=== PATIENT | female | born 1950 ===

== ENCOUNTER 2017-04-13 13:41 | Outpatient (CLI) | payer MEDICARE ==
--- NOTE | 2017-04-13 16:41 | Ultrasound Report ---
RIGHT BREAST ULTRASOUND: 04/13/17 13:41:00 CLINICAL: Palpable right breast mass. COMPARISON: 03/05/17 mammogram FINDINGS: Ultrasound of the right breast (including all four quadrants and the retroareolar area) was performed and demonstrated a solid heterogeneous irregular hypoechoic mass at 6 o'clock 9 cm from the nipple. It measures 3.4 x 2.7 x 3.5 cm and correlates with a palpable lump. Review of the recent mammogram reveals a posterior asymmetry in the right breast on the MLO view and it appears that the posterior mass was not included on the mammogram. No other mass of the right breast. Ultrasound of the right axilla demonstrated an abnormal lymph node with no central fat measuring 2.8 x 1.5 x 2.9 cm. IMPRESSION: A highly suspicious 3.5 cm right breast mass at 6 o'clock 9 cm from the nipple and a suspicious right axillary lymph node. BI-RADS 5 - - Highly Suggestive of Malignancy RECOMMENDATION: Ultrasound guided needle core biopsy of the right breast and needle core biopsy of the suspicious right axillary lymph node. I discussed the findings and the recommendation for needle core biopsy with the patient at the time of the examination. She does not have a primary care doctor and desires to return to [facility] for the biopsy.
== END 2017-04-13 13:42 | disposition home or self-care (01) ==
LOC: SPVWC 13:41
PROVIDERS: ATTEND Internal Medicine
DX: N63.10 Unspecified lump in the right breast, unspecified quadrant (principal)

== ENCOUNTER 2017-04-26 10:14 | Outpatient (CLI) | payer MEDICARE ==
--- NOTE | 2017-04-26 12:50 | Mammography Report ---
RIGHT DIGITAL DIAGNOSTIC MAMMOGRAM: 04/26/17 10:14:00 CLINICAL: For clip placement immediately status post ultrasound biopsy. COMPARISON:03/05/17 FINDINGS: A biopsy clip is now identified 6 o'clock at the posterior aspect of the breast. IMPRESSION: Concordant clip placement status post ultrasound biopsy. BI-RADS CATEGORY: 5 - - Highly Suggestive of Malignancy Pathology pending.
--- NOTE | 2017-04-26 13:11 | Ultrasound Report ---
ULTRASOUND GUIDED NEEDLE CORE BIOPSY WITH CLIP PLACEMENT RIGHT BREAST AND ULTRASOUND GUIDED NEEDLE CORE BIOPSY OF A RIGHT AXILLARY LYMPH NODE : 04/26/17 00:00:00 CLINICAL: Right breast mass and a suspicious enlarged right axillary lymph nodes. COMPARISON :04/13/17 FINDINGS: The procedure was explained to the patient and informed consent was obtained. Ultrasound demonstrated the previously described 3.5 cm mass at 6 o'clock in the 2.8 cm suspicious right axillary lymph node. The skin was prepped with Betadine and anesthetized with 1% lidocaine. Ultrasound needle core biopsy was performed through a small dermatotomy using ultrasound guidance, 2% lidocaine with epinephrine for deep anesthesia and a 14-gauge Achieve biopsy device. 4 cores were obtained and placed in formalin. A 14 gauge Mammostar barbell shape clip was deployed within the lesion. The skin of the axilla was prepped with Betadine and anesthetized with 1% lidocaine. Ultrasound guided needle core biopsy of the lymph node was performed through a small dermatotomy using 2% lidocaine with epinephrine for deep anesthesia and a 18-gauge Achieve biopsy device. 2 samples were obtained and placed in formalin. A clip was deployed within the lymph node. Hemostasis was obtained at both sites with minimal pressure and sterile dressings were applied. The patient tolerated the procedure well and there were no apparent complications. A two-view mammogram demonstrated cord at clip placement. She was discharged in good condition and was given instructions for wound care and followup. IMPRESSION: Uncomplicated ultrasound-guided needle core biopsy of a right breast mass and uncomplicated needle core biopsy of right axillary lymph node.
== END 2017-04-26 10:15 | disposition home or self-care (01) ==
LOC: SPVWC 10:14
PROVIDERS: ATTEND Surgery
DX: C50.911 Malignant neoplasm of unspecified site of right female breast (principal); C77.3 Secondary and unspecified malignant neoplasm of axilla and upper limb lymph nodes; Z17.0 Estrogen receptor positive status [ER+]
CPT/HCPCS: 38505; 88305; 88342; 88361

== ENCOUNTER 2017-05-11 13:46 | Outpatient (CLI) | payer MEDICARE ==
--- NOTE | 2017-05-12 12:43 | Magnetic Resonance Report ---
BILATERAL BREAST MRI WITHOUT AND WITH CONTRAST: 05/11/17 13:46:00 CLINICAL: Newly diagnosed right breast cancer. 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 COMPARISON:03/05/17 and 04/26/17 mammograms.. TECHNIQUE: Axial 1.0-mm T1 without, axial high resolution 2.0-mm T2 and axial 1.0-mm dynamic Vibrant high-resolution postcontrast T1 fat saturation sequences on a 1.5 Eileen magnet. The examination was performed with an 8 channel dedicated [employer] breast coil. Post processing with CAD and subtraction was performed on an [email or web address] workstation. 14.0 cc of Multihance was injected without incident via a right antecubital vein 22-gauge INT for the contrast portion of the exam. Consent was obtained prior to the administration of the contrast. FINDINGS: Right: Mild background parenchymal enhancement. The known cancer is an oval enhancing mass at 6 o'clock 14.5 cm from the nipple and 4.3 cm from the chest wall. It contains a biopsy clip and measures 4.5 x 2.8 x 3.7 cm. The mass demonstrates heterogeneous enhancement with mixed kinetics, 493% peak enhancement and 14% type III washout. A small hematoma at the biopsy tract near the lateral skin surface measures 1.8 x 1.2 cm. There is moderate enhancement along the biopsy tract. No other mass or suspicious enhancement of the right breast. Moderate inferior skin thickening of the breast. There is mild T2 hyperintense edema and the inferior breast. A 3.9 x 2.1 cm right axillary lymph node correlates with the biopsy proven right axillary debi metastasis. An additional lymph node has suspicious morphology and measures 2.2 x 1.2 cm. No suspicious internal mammary lymph nodes. Left: Minimal background parenchymal enhancement. No mass or suspicious enhancement. No suspicious left axillary or left internal mammary lymph nodes. IMPRESSION: A known 4.5 cm right breast cancer with biopsy proven right axillary debi metastasis. No additional lesions identified. Negative left breast. RIGHT BI-RADS 6 -- Known Cancer LEFT BI-RADS 1 -- Negative
== END 2017-05-11 13:47 | disposition home or self-care (01) ==
LOC: SPVIMAG 13:46
PROVIDERS: ATTEND Physician Assistant
DX: C79.89 Secondary malignant neoplasm of other specified sites (principal); C50.511 Malignant neoplasm of lower-outer quadrant of right female breast
CPT/HCPCS: A9577; C8908; 77059